=== PATIENT | female | born 1985 | race Caucasian/White ===

== ENCOUNTER 2021-02-25 10:59 | Emergency (ER) | payer BC ==
[~2021-02-25] VITALS: Ht 160 cm; Wt 115.9 kg
[2021-02-25 11:06] VITALS: BP 119/80; TEMP 98.2
[2021-02-25] MEDS ORDERED: SYNTHROID0.075 MG/T PO (11:16)
[2021-02-25] MEDS ORDERED: FASTIN30 MG PO (11:16)
[2021-02-25] MEDS ORDERED: VITAMIND3 5000 PO (11:17)
[2021-02-25] MEDS ORDERED: XANAX 0.5MG0.5 MG PO (11:17)
[2021-02-25] MEDS ORDERED: OZEMPIC0.25 MG/0. SQ (11:18)
[2021-02-25 11:33] LABS: COLLECTION METHOD CLEAN CATCH
[2021-02-25 11:37] LABS: BASO % 0.1 % (0.0-2.0); EOS # 0.3 (0.0-0.7); EOS % 4.7 % (0-4.0); GRAN # 4.6 (1.4-6.5); GRAN % 65.7 % (42.2-75.2); HEMATOCRIT 41.1 % (37.0-47.0); HEMOGLOBIN 13.5 g/dl (12.5-16.0); LYMPH # 1.6 (1.2-3.4); LYMPH % 23.2 % (20.0-51.0); MEAN CELL VOLUME 86 fl (80.0-100.0); MEAN CORPUSCULAR HEMOGLOBIN 28 pg (27.0-31.0); MEAN CORPUSCULAR HGB CONC 33 g/dl (33.0-37.0); MEAN PLATELET VOLUME 10.3 fl (7.4-10.4); MONO # 0.4 (0.1-0.6); PLATELET COUNT 231 K/mm3 (130-400); RED BLOOD COUNT 4.77 M/mm3 (4.10-5.30); REDCELL DISTRIBUTION WIDTH-CV 12.8 % (11.5-14.5)
[2021-02-25 11:47] LABS: MUCOUS Present /lpf; PH 5 (5-8); SQUAMOUS EPITHELIAL 20-50 /hpf; URINE APPEARANCE Cloudy; URINE BACTERIA Rare /hpf; URINE BILIRUBIN Negative (NEGATIVE); URINE BLOOD Negative (NEGATIVE); URINE COLOR Yellow; URINE GLUCOSE Negative (NEGATIVE); URINE KETONE Negative (NEGATIVE); URINE LEUKOCYTE ESTERASE 2+ (NEGATIVE); URINE NITRATE Negative (NEGATIVE); URINE PROTEIN(semi-quant) 1+ (NEGATIVE); URINE UROBILINOGEN Negative (NEGATIVE)
[2021-02-25 12:43] LABS: ALBUMIN 4.1 gm/dL (3.5-5.0); BILIRUBIN,TOTAL 0.3 mg/dL (0.0-1.0); C-REACTIVE PROTEIN 1.2 mg/dL (0.0-0.9); CALCIUM 9.3 mg/dL (8.4-10.2); CREATININE, serum 0.63 (0.52-1.25); TOTAL PROTEIN 7.4 gm/dL (6.4-8.2)
[2021-02-25] MEDS ORDERED: ZOFRAN ODT4 MG PO (13:06)
[2021-02-25 13:14] VITALS: PULSE 77
== END 2021-02-25 13:15 | disposition home or self-care (01) ==
LOC: COL.ER 10:59
PROVIDERS: Family Medicine
DX: R10.9 Unspecified abdominal pain (principal); T38.3X5A Adverse effect of insulin and oral hypoglycemic [antidiabetic] drugs, initial encounter; E11.9 Type 2 diabetes mellitus without complications; Z88.2 Allergy status to sulfonamides; Z79.84 Long term (current) use of oral hypoglycemic drugs
CPT/HCPCS: J2405; J7120